=== PATIENT | female | born 1945 | race Caucasian/White ===

== ENCOUNTER 2016-09-03 08:20 | Day surgery (SDC) | payer MEDICARE, OTHER ==
[~2016-09-03] VITALS: Ht 170.2 cm; Wt 55.0 kg
[~2016-09-03 08:20] MED LIST: ALEN10TA5 PO; ASCO100089 PO; CHOL40003 PO; KRIL500C PO; MAGN400C PO; MULT1CAP33 PO; OMEP20CA11 PO; POLY17PO6 PO; PRED15SO AFFECT_EYE; SIMV20TA4 PO; Sodium Chloride LOK Flush 10 mL Syringe IV PRN; TEST5POW5 MC; UBID100C16 PO; VIT1CAPS10 PO; fentaNYL-PF 50 mCg/mL 2 mL Inj IVPUSH PRN
[2016-09-03 08:43] VITALS: BP 109/55; PULSE 59; RESP 18; O2SAT 100
[2016-09-03] MEDS: 0.9% Sodium Chloride 1,000 ML IV PRN ×2 (09:42→10:26)
[2016-09-03 10:35] VITALS: BP 104/51; PULSE 60; RESP 14; O2SAT 99
[2016-09-03 10:54] VITALS: BP 111/52; PULSE 65; RESP 15; O2SAT 100
[2016-09-03 11:04] VITALS: BP 98/47; PULSE 59; RESP 15; O2SAT 98
--- NOTE | 2016-09-03 20:01 | ENDO ---
[address] [address] ENDOSCOPY PROCEDURE PATIENT: WENDY FENG : 1945 MR#: [id number] ADMIT: 09/03/2016 JOB ID: [id number] DATE: 09/03/2016 PROCEDURE: 1. Failed esophagogastroduodenoscopy. 2. Incomplete colonoscopy. PRIMARY PROVIDER: Vernon Cuevas MD INDICATIONS: A 71-year-old female with chronic longstanding reflux reporting for Webb's screening. She additionally has tremendous constipation and a family history of colon cancer. Colonoscopy is also pursued. EQUIPMENT: GIF H 180 J and a PCF H 180 AL. SEDATION: 1. 8 mg Versed. 2. 100 mcg fentanyl. COMPLICATIONS: None identified. BOWEL PREPARATION: Excellent. PROCEDURE INFORMATION: After the risks and benefits were explained, written and verbal informed consent was obtained. The patient was brought into the endoscopy suite and placed into the left lateral decubitus position. Sedation was achieved as above. The scope was introduced into the mouth through the bite block, and advanced into the oropharynx. In spite of adequate sedation, as soon as we attempted to navigate past the upper esophageal sphincter, the patient became somewhat combative and really intolerant of the procedure. Otherwise, with this scope out of her mouth she was moderately sedated. We aborted this after several minutes of effort. The patient was turned around and digital rectal examination accomplished. This did not elicit any obvious anorectal pathology. The pediatric colonoscope was introduced into the rectum and advanced with great difficulty to about 50 cm from the anal verge. The patient had a tremendously tortuous sigmoid. Once we reached the splenic flexure, there was more very unusual tortuosity, and we could not overcome scope looping in spite of different patient positions and applications of pressure. I did not feel it was safe to push beyond this particular loop. We thereafter slowly removed the scope to evaluate the distal mucosa. Multiple direct views were made through the dentate line. The colon was decompressed. The scope then removed from the patient who tolerated the procedure reasonably well. FINDINGS: 1. EGD: Aborted as above. 2. Colon: Incomplete examination, as above. Mild diverticulosis was seen in the left colon. The patient had a tremendously tortuous course. I did not appreciate any polyps, mass lesions or inflammatory features throughout the left colon. ENDOSCOPIC DIAGNOSES: 1. Failed esophagogastroduodenoscopy. 2. Diverticulosis. 3. Failed colonoscopy. RECOMMENDATIONS: 1. The patient will be offered a virtual colonoscopy up through [facility]. Ideally, this can be performed this afternoon to take advantage of the excellent bowel prep conditions. 2. Will reschedule for upper endoscopy with anesthesia next available. 3. Continue the constipation regimen discussed in clinic including the dilute ground flaxseed fiber and/or MiraLAX to facilitate daily acceptable bowel evacuations.
[2016-10-20] MEDS ORDERED: PRED15SO OCULAR (18:04)
[2016-10-20] MEDS ORDERED: KETO5DRO80 OCULAR (18:04)
== END 2016-09-03 23:59 | disposition home or self-care (01) ==
LOC: END 08:20
PROVIDERS: ATTEND Internal Medicine Gastroenterology
DX: K59.00 Constipation, unspecified (principal); Z53.09 Procedure and treatment not carried out because of other contraindication; K21.9 Gastro-esophageal reflux disease without esophagitis; K57.30 Diverticulosis of large intestine without perforation or abscess without bleeding; Z85.41 Personal history of malignant neoplasm of cervix uteri; Z80.0 Family history of malignant neoplasm of digestive organs

== ENCOUNTER 2016-10-21 07:15 | Day surgery (SDC) | payer MEDICARE, OTHER ==
[~2016-10-21] VITALS: Ht 167.6 cm; Wt 56.2 kg
[~2016-10-21 07:15] MED LIST changes: +KETO5DRO80 OCULAR; -POLY17PO6 PO; -PRED15SO AFFECT_EYE; +PRED15SO OCULAR; -Sodium Chloride LOK Flush 10 mL Syringe IV PRN; -fentaNYL-PF 50 mCg/mL 2 mL Inj IVPUSH PRN
[2016-10-21] MEDS ORDERED: Propofol 10,000 mCg/mL 20 mL Inj ONE (07:16)
[2016-10-21] MEDS ORDERED: Ondansetron 2 mg/mL 2 mL Inj ONE (07:16)
[2016-10-21] MEDS ORDERED: Ketamine 10 mg/mL 20 mL Inj ONE (07:16)
[2016-10-21] MEDS ORDERED: Glycopyrrolate 0.2 MG/ML 1mL Inj ONE (07:16)
[2016-10-21 07:31] VITALS: BP 117/54; PULSE 61; RESP 16; O2SAT 100
--- NOTE | 2016-10-21 08:07 | PCM.HPANE ---
Patient Data Date of Service: October 21, 2016 Surgeon Admitting Provider: Attending Provider:Lupillo Al MD Primary Care Physician:Other,Physician Other Provider:Mata Eid Anesthesia Reason for Visit GERD Ht/WT & BMI Height (Feet): 5 Height (Inches): 6 Weight (Kilograms): 56.25 Body Mass Index 19.00 Allergies Coded Allergies: Sulfa (Sulfonamide Antibiotics) (Verified Allergy, Mild, nausea, 09/02/16) codeine (Verified Allergy, Mild, nausea, 09/02/16) Past Anesthesia History Anesthesia History: Denies:: Abnormal Airway, Anesthesia Reactions, Difficult Intubation, Fam Anesthesia Reaction, Fam Malignant Hypertherm, Malignant Hyperthermia Diabetes History Hx Diabetes?: No MRSA MRSA: No Medications Hypertension Medication: No Home Meds Incl Beta Miguel: No Reported Medications Prednisolone 15 Mg/5 Ml Solution1 Drop OCULAR BD 10/20/16 Ketorolac Tromethamine 5 Ml Drops5 Ml OCULAR QID 10/20/16 Multivitamin (Multivitamins)1 Each Capsule1 Each PO DAILY 09/02/16 Cholecalciferol (Vitamin D3) (Vitamin D3)4,000 Unit Capsule4,000 Unit PO DAILY 09/02/16 Ascorbic Acid (Vitamin C)1,000 Mg Tab.chew1,000 Mg PO DAILY Ref 0 09/02/16 Testosterone 5 Gm Powder5 Gm MC 09/02/16 Simvastatin 20 Mg Ouqlnt29 Mg PO HS Ref 0 09/02/16 Vit A/Vit C/Vit E/Zinc/Copper (Preservision Areds Softgel)1 Each Capsule1 Each PO DAILY 09/02/16 Omeprazole 20 Mg Capsule.dr20 Mg PO DAILY Ref 0 09/02/16 Magnesium Oxide (Magnesium)400 Mg Voqpthb563 Mg PO DAILY 09/02/16 Krill Oil 500 Mg Mgbubyf506 Mg PO DAILY 09/02/16 Ubidecarenone (Coq-10)100 Mg Pohzggh308 Mg PO DAILY 09/02/16 Alendronate 10 Mg Lxzotj74 Mg PO DAILY Ref 0 09/02/16 History History of ENT Problems?: Yes HEENT History: Positive for:: Hearing Problem Denies:: Abnormal Airway Difficult Intubation Dysphagia Denture Type: None Teeth Condition: Tooth Decay Missing Teeth Hx of Heart Problems?: No Cardiovascular History: Denies:: AICD Atrial Fibrillation Chest Pain Hypertension Pacemaker Valvular Heart Disease Other Cardiac History: high cholesterol Hx of Respiratory Problem?: No Respiratory History: Denies:: Asthma COPD Cough Hemoptysis Pneumonia Tuberculosis Hx Neurologic Problems?: No Neurological History: Denies:: CVA Seizures TIA Other Neurological Pertinent: hearing impairment Hx of GI Problems?: Yes Gastrointestinal History: Positive for:: Gastroesphageal Reflux Hx of Problems?: No Female Hx: Denies:: Currently Hx Musculoskeletal Problems?: No Musculoskeletal History: Denies:: Fibromyalgia Joint Replacement Psycho Social History: Denies:: Anxiety Hx Depression Hx Surgeries?: Yes (toe,breast implants,tubal ligation) Hx Any Other Health Problems?: Yes Hx Diabetes: No Hx Alcohol Use: Yes (social) Smoking Status: Never Smoker Stop/Bang Treated for Sleep Apnea?: No Do You Have a CPAP Machine?: No S-Snoring: Do You Snore Loudly: No T-Tired: feel tired, fatigued: No O-Obsered: Observed not breath: No P-Blood Pressure: treated: No B- Body Mass Index > 35 kg/m2: No A- Age over 50: Yes N- Neck Large Circumference: No G- Gender Male: No MARYCARMEN Total Score: 1 MARYCARMEN Risk Assessment: Low Risk, <3 Yes Risk Assessment Category Category 1A: Patient has history of documented sleep apnea, and HAS NOT received any narcotic, sedative or anesthesia administration during this stay. Category 1B: Patient has history of documented sleep apnea, and HAS received any narcotic , sedative or anesthesia administration during this stay Category 2: Patient has SUSPECTED Obstructive Sleep Apnea, and HAS received any narcotic , sedative or anesthesia administration during this stay. Category 3: Patient has SUSPECTED Obstructive Sleep Apnea and HAS NOT received narcotic, sedative or anesthesia administration during this stay. Category 4: Outpatient in Procedural Areas with known sleep apnea or who screen positive for High Risk via the STOP/BANG questionnaire. Exam Exam Vital Signs Vital Signs Date Time Temp Pulse Resp B/P Pulse Ox O2 Delivery O2 Flow Rate FiO2 10/21/16 07:31 36.1 61 16 117/54 100 Room Air General Appearance: Alert, Oriented X3, Cooperative HEENT/AIRWAY: MP 3, Neck Movement (from), Mouth Opening (3), Other (tmd3) Lungs: Diminished Heart: Exam Unremarkable Plan Impression Patient chart reviewed, patient interviewed and anesthestic plan with risks, benefits, and alternatives discussed, and informed consent obtained. Anesthetic Plan: TIVA Bene/Risks/Altern/Consents: Yes HP Complete Prior to Induction: Yes Harjeet Cowan MD October 21, 2016 08:07
[2016-10-21] MEDS ORDERED: Lactated Ringer's 1,000 ML IV ONE ×2 (08:16)
[2016-10-21] MEDS ORDERED: Lactated Ringer's 1,000 ML IV SCH (08:37)
[2016-10-21] MEDS ORDERED: Lactated Ringer's 500 ML IV PRN (08:37)
[2016-10-21 08:38] VITALS: BP 107/55; PULSE 76; RESP 14; O2SAT 98
[2016-10-21] MEDS ORDERED: Dexamethasone 4 mg/mL Inj IVPUSH PRN (08:40)
[2016-10-21] MEDS ORDERED: Phenylephrine 10,000 mCg/mL Inj IVPUSH PRN (08:40)
[2016-10-21] MEDS ORDERED: fentaNYL-PF 50 mCg/mL 2 mL Inj IVPUSH PRN (08:40)
[2016-10-21] MEDS ORDERED: MetoCLOpramide 5 mg/mL 2 mL Inj IVPUSH PRN (08:40)
[2016-10-21] MEDS ORDERED: Ondansetron 2 mg/mL 2 mL Inj IVPUSH PRN (08:40)
[2016-10-21] MEDS ORDERED: EPHEDrine Sulfate 50 mg/mL Inj IVPUSH PRN (08:40)
[2016-10-21 08:49] VITALS: BP 95/53; PULSE 71; RESP 14; O2SAT 98
[2016-10-21 08:59] VITALS: BP 105/52; PULSE 72; RESP 14; O2SAT 100
--- NOTE | 2016-10-21 09:36 | ENDO ---
[address] [address] ENDOSCOPY PROCEDURE PATIENT: WENDY FENG : 1945 MR#: [id number] ADMIT: 10/21/2016 JOB ID: [id number] PROCEDURE: Esophagogastroduodenoscopy with biopsy. INDICATIONS: A 71-year-old female with chronic GERD, reporting for Webb's screening. She had a failed EGD attempt in August. EQUIPMENT: GIF-H190. SEDATION: Monitored anesthesia as provided by Dr. Harjeet Cowan. COMPLICATIONS: None identified. PROCEDURE INFORMATION: After the risks and benefits were explained, written and verbal informed consent was obtained. The patient was brought into the endoscopy suite and placed into the left lateral decubitus position. Sedation was achieved as above. The scope introduced into the mouth through the bite block, and advanced to the second portion of the duodenum. The scope was slowly withdrawn to carefully examine the mucosa for any defects or lesions. Retroflexed views were accomplished in the stomach. The stomach was decompressed, the scope removed from the patient who tolerated the procedure well. FINDINGS: 1. Duodenum: No pathology from the bulb through to the second portion. 2. Stomach: No outlet obstruction. No ulcers. No mass lesions. There was some streaky erythema mostly identified through the more proximal stomach. Random gastric biopsy was taken for exclusion of Helicobacter or any other underlying histopathology. Retroflexed views of the LES were otherwise unremarkable. 3. Esophagus: The squamocolumnar junction generally correlated with the top of the gastric folds. The GE junction was at 42 cm from the incisors. There was, however, a single tongue of extension of the salmon-colored mucosa rising above the GE junction in about the 7 o'clock location. We took a biopsy from this area for exclusion of specialized intestinal metaplasia. Otherwise, I did not see any evidence of erosive esophagitis. The remainder of the esophagus was generally unremarkable. ENDOSCOPIC DIAGNOSES: 1. Very subtle sliding hiatal hernia (not mentioned above). 2. Gastropathy. 3. 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 RECOMMENDATIONS: 1. Await histopathology. 2. Continue antireflux regimen. 3. Continue bowel regimen. 4. If Webb's mucosa is identified, then repeat EGD will be suggested for 9-12 months. CC: Vernon Cuevas MD
--- NOTE | 2016-10-21 10:30 | PCM.ANEP1 ---
Post Anesthesia PACU Phase 1 Assessment Date of Service: October 21, 2016 Vital Signs Vital Signs Date Time Temp Pulse Resp B/P Pulse Ox O2 Delivery O2 Flow Rate FiO2 10/21/16 08:59 72 14 105/52 100 Room Air 10/21/16 08:49 71 14 95/53 98 Room Air 10/21/16 08:38 76 14 107/55 98 Room Air 10/21/16 07:31 36.1 61 16 117/54 100 Room Air Anesthetic Administered: TIVA Level of Alertness: Awake, talking PENDLETON's with Equal Strength: Yes Pain: No Pain Scale Score: 0 Nausea or Vomiting: No CV Function and Hydration: Yes Airway Device: none in PACU Oxygen Delivery: Room Air Lungs: Diminished PACU Phase 2 Assessment Complications: No Follow up Care: No Patient Instructions Provided: Yes Harjeet Cowan MD October 21, 2016 10:30
--- NOTE | 2016-10-22 16:42 | PATH ---
SURGICAL PATHOLOGY Attending Physician:Michelle Pastrana CASE STATUS: Signed Out PATIENT NAME: WENDY FENG PID: [id number] : 1945 DATE COLLECTED:10/21/2016 16:55 SPECIMEN: 1: Gastric, Biopsy 2: Esophagus, Biopsy CLINICAL HISTORY: GERD 1. GASTRIC BXS 2. DISTAL ESOPHAGUS BXS FINAL DIAGNOSIS: 1. Gastric Biopsy: Body-type mucosa with no diagnostic abnormality. No Helicobacter organisms identified by H&E stain. Negative for intestinal metaplasia, dysplasia, and malignancy. 2. Distal Esophagus, Biopsy: Columnar mucosa with no diagnostic abnormality. Negative for intestinal metaplasia. Negative for dysplasia and malignancy. No well-preserved squamous component identified for evaluation. ICD10: K29.7 GROSS DESCRIPTION: The specimen is received in two formalin filled containers labeled with the patient's name. 1). The specimen is sublabeled "gastric" and consists of a 0.3 x 0.2 x 0.2 CM portion of tissue which is entirely submitted in cassette 1A. 2). The specimen is sublabeled "distal esophagus" and consists of a 0.3 x 0.2 x 0.2 CM portion of tissue which is entirely submitted in cassette 2A. 10/21/2016 [facility] ICD-9 CODES: CPT CODES: 1: 19226 2: 82765 Electronically Signed Out Damari Garcia MD [facility] [address], [place] [address] Technical component performed at [facility], [facility] [address], [place], [address]
== END 2016-10-21 23:59 | disposition home or self-care (01) ==
LOC: END 07:15
PROVIDERS: ATTEND Internal Medicine Gastroenterology
DX: K29.70 Gastritis, unspecified, without bleeding (principal); K44.9 Diaphragmatic hernia without obstruction or gangrene; K21.9 Gastro-esophageal reflux disease without esophagitis; K59.00 Constipation, unspecified; E78.5 Hyperlipidemia, unspecified; E78.00 Pure hypercholesterolemia, unspecified; Z85.41 Personal history of malignant neoplasm of cervix uteri; Z90.710 Acquired absence of both cervix and uterus
CPT/HCPCS: 43239; J2250; J2405; J7120